=== PATIENT | male | born 1980 ===

== ENCOUNTER 2017-10-27 12:27 | Outpatient (REF) | payer OTHER, SELFPAY ==
[2017-10-27 21:10] LABS: HCT 40.8 % (40.0-50.0); HGB 14.2 g/dL (13.5-17.5); Mean Corp. HGB Concentration 34.8 g/dL (32.0-36.0); Mean Corpuscular Hemoglobin 30.1 pg (27.0-33.0); Mean Corpuscular Volume 86.6 fL (80-95); Mean Platelet Volume 10.7 fL (8.0-11.0); Platelet Count 261 x1000/uL (130-400); RBC 4.71 m/cumm (4.50-6.00); RBC Distribution Width 12.4 % (11.8-14.1)
[2017-10-27 22:24] LABS: ALT 30 U/L (12-78); AST 24 U/L (15-37); Albumin 4.5 g/dL (3.4-5.0); Alkaline Phosphatase 71 U/L (46-116); BUN 5 mg/dL (7-18); Bilirubin, Total 0.5 mg/dL (0.2-1.0); CREATININE 0.78 mg/dL (0.70-1.30); Calcium 9.4 mg/dL (8.5-10.1); Chloride 104 mmol/L (98-107); Glucose 99 mg/dL (70-100); Potassium 4.4 mmol/L (3.5-5.1); Sodium 143 mmol/L (136-145); TSH 0.53 uIU/mL (0.358-3.74); Total Protein 7.5 g/dL (6.4-8.2)
[2017-10-29 11:47] LABS: HIV-1/2 Ag & Ab Screen Negative (NEGAT)
== END 2017-10-27 12:28 ==
LOC: NCHCN 12:27
PROVIDERS: PCP Internal Medicine; Visit Provider Physician Assistant Medical
DX: B97.89 Other viral agents as the cause of diseases classified elsewhere (principal)
CPT/HCPCS: 80053; 85027; 87389; 84443

== ENCOUNTER 2019-03-29 08:45 | Outpatient (REF) | payer SELFPAY ==
[2019-04-03 21:07] LABS: Carboxy-THC Interpretation Positive.; Delta-9 CarboxyThc by LC-MS/MS 80 ng/mL (Cutoff:<3)
== END 2019-03-29 09:05 ==
LOC: NCHCN 08:45
PROVIDERS: PCP Internal Medicine; Visit Provider Internal Medicine
DX: F12.10 Cannabis abuse, uncomplicated (principal)
CPT/HCPCS: 80349

== ENCOUNTER 2020-02-14 16:30 | Outpatient (REF) | payer MEDICAID, SELFPAY ==
[2020-02-14 20:42] LABS: HCT 42.6 % (40.0-50.0); HGB 14.2 g/dL (13.5-17.5); MCH 30.6 pg (27.0-33.0); MCHC 33.3 % (32.0-36.0); MCV 91.8 fL (80-95); MPV 10.3 fL (8.0-11.0); Platelet Count 294 10^3/uL (130-400); RBC 4.64 10^6/uL (4.36-5.78); RDW 12.4 % (11.8-14.1); RDW-SD 42.1 fL
[2020-02-14 20:44] LABS: C-Reactive Protein 0.06 mg/dL (0.0-0.3); Uric Acid 5.4 mg/dL (3.5-7.2)
[2020-02-14 21:35] LABS: ESR 4 mm/hr (0-15)
[2020-02-16 10:59] LABS: Lyme Ab w Rflx to Lyme Confirm Negative (Negative)
== END 2020-02-14 16:50 ==
LOC: NCHCN 16:30
PROVIDERS: PCP Internal Medicine; Visit Provider Internal Medicine
DX: M13.162 Monoarthritis, not elsewhere classified, left knee (principal)
CPT/HCPCS: 85027; 85652; 84550; 86140; 86618